=== PATIENT | female | born 1990 ===

== ENCOUNTER 2024-11-24 10:39 | Outpatient (CLI) | payer OTHER | END 2024-11-24 10:40 | disposition home or self-care (01) | LOC: PRENATAL 10:39 | PROVIDERS: ATTEND Obstetrics & Gynecology Maternal & Fetal Medicine | DX: O44.00 Complete placenta previa NOS or without hemorrhage, unspecified trimester (principal); O09.529 Supervision of elderly multigravida, unspecified trimester; Z14.8 Genetic carrier of other disease; Z3A.19 19 weeks gestation of pregnancy ==

== ENCOUNTER → 2025-02-04 13:46 | Outpatient (CLI) | payer OTHER | END | disposition home or self-care (01) | LOC: PRENATAL 13:46 | PROVIDERS: ATTEND Obstetrics & Gynecology Maternal & Fetal Medicine | DX: O26.849 Uterine size-date discrepancy, unspecified trimester (principal); O36.8199 Decreased fetal movements, unspecified trimester, other fetus; O09.529 Supervision of elderly multigravida, unspecified trimester; Z14.8 Genetic carrier of other disease; Z3A.30 30 weeks gestation of pregnancy ==

== ENCOUNTER 2025-03-05 11:12 | Outpatient (CLI) | payer OTHER | END 2025-03-05 11:14 | disposition home or self-care (01) | LOC: PRENATAL 11:12 | PROVIDERS: ATTEND Obstetrics & Gynecology Maternal & Fetal Medicine | DX: O26.849 Uterine size-date discrepancy, unspecified trimester (principal); O36.8199 Decreased fetal movements, unspecified trimester, other fetus; O09.529 Supervision of elderly multigravida, unspecified trimester; Z14.8 Genetic carrier of other disease; Z3A.35 35 weeks gestation of pregnancy ==